=== PATIENT | female | born 1990 | race Two or more races ===

== ENCOUNTER 2024-08-09 14:26 | Inpatient (IN) | payer OTHER ==
[~2024-08-09] VITALS: Ht 167.6 cm; Wt 108.9 kg
--- NOTE | 2024-08-09 14:32 | NUR ---
PTE ALERTA Y ORIENTADA X3 REFIERE VARIOS EPISODISO DE VOMITOS Y DIARREAH. SE MIDEN S/V Y SE UBICA.
[2024-08-09] MEDS ORDERED: RINGERS SOLUTION,LACTATED 1,000 ML IV STA (16:21)
[2024-08-09] MEDS ORDERED: FAMOtidine 10 MG/ML (4ML VIAL) IV PUSH STA (16:22)
[2024-08-09] MEDS ORDERED: PROMETHAZINE HCL 50 MG/ML AMPUL IM STA (16:23)
[2024-08-09] MEDS ORDERED: HYOSCYAMINE SULFATE 0.125 MG TAB.SUBL ONE (16:30)
[2024-08-09] MEDS ORDERED: HYOSCYAMINE SULFATE 0.125 MG TAB.SUBL SL ONE (16:30)
[2024-08-09] MEDS ORDERED: FAMOTIDINE/PF 20 MG/2 ML VIAL ONE ×2 (16:31→23:41)
[2024-08-09] MEDS ORDERED: PROMETHAZINE HCL 50 MG/ML AMPUL IM ONE (16:31)
--- NOTE | 2024-08-09 16:56 | NUR ---
SE ORIENTA PTE SOBRE TX MEDICO EL CUAL REFIERE ENTENDER.SE LE EXTRAEN MUESTRAS BAJO MEDIDAS ASEPTICAS,SE CANALIZA Y SE ADMINISTRA MEDICAMENTO CHAVA ORDEN MEDICA.
[2024-08-09 17:14] LABS: HEMATOCRIT 34.9 % (36.0-45.00); HEMOGLOBIN 10.8 g/dL (12.0-15.00); MEAN CELL VOLUME 75.2 fL (80.00-100.00); MEAN CORPUSCULAR HEMOGLOBIN 23.2 pg (27.00-32.0); MEAN CORPUSCULAR HGB CONC 30.9 g/dl (32.0-36.0); PLATELET COUNT 423 K/uL (150-450); RED BLOOD COUNT 4.65 M/uL (4.00-6.00)
[2024-08-09 17:35] LABS: ALBUMIN 3.9 gm/dL (3.4-5.0); BILIRUBIN TOTAL 1.24 mg/dL (0.3-1.2); CALCIUM 9.1 mg/dL (8.5-10.1); CREATININE SERUM 1.31 mg/dL (0.55-1.02); GFR 45.94; GLOBULINA 4.8 G/DL (2.4-3.5); POTASSIUM 3.86 mEq/L (3.5-5.1); TOTAL PROTEIN 8.7 gm/dL (6.4-8.2)
[2024-08-09 18:13] LABS: PH,URINE 5.5 (5.0-8.0); URINE APPEARANCE Cloudy; URINE BILIRRUBIN Small (NEGATIVE); URINE BLOOD Moderate; URINE COLOR Orange; URINE GLUCOSE Negative (NEGATIVE); URINE KETONE Trace (NEGATIVE); URINE LEUKOCYTE Small; URINE NITRATE Positive
[2024-08-09 18:17] LABS: URINE BACTERIA 1370.8 uL (0.0-1933); URINE RBC 3.9 uL (0.0-20.8); URINE WBC 95.9 uL (0.0-23.2)
[2024-08-09 18:36] LABS: URINE CAST > 21.83 uL (0.0-1.40); URINE EPITHELIAL CELLS > 201.7 uL (0.0-38.8); URINE PROTEIN 300 (NEGATIVE)
[2024-08-09] MEDS ORDERED: MORPHINE SULFATE 4 MG/ML VIAL IV STA (19:45)
[2024-08-09] MEDS ORDERED: KETOROLAC TROMETHAMINE 30 MG VIAL IV STA (19:46)
[2024-08-09] MEDS ORDERED: KETOROLAC TROMETHAMINE 30 MG VIAL ONE (20:14)
--- NOTE | 2024-08-09 20:32 | NUR ---
SE ADMINISTRA TORADOL CHAVA ORDEN MEDICA BAJO MEDIDAS ASEPTICAS SE ORIENTA A PTE QUIEN REFIERE ENTENDER Y ACEPTAR. PTE REFIERE QUE NO DESEA QUE LE ADMINISTREN MORFINA.
[2024-08-09] MEDS ORDERED: ONDANSETRON HCL 2 MG/ML VIAL IV STA (21:01)
[2024-08-09] MEDS ORDERED: ONDANSETRON HCL 2 MG/ML VIAL ONE (21:23)
[2024-08-09] MEDS ORDERED: MEROPENEM 20 MG/ML REDILUIDO IV STA (22:44)
[2024-08-09] MEDS ORDERED: 0.9 % SODIUM CHLORIDE 1,000 ML IV ONE (23:30)
[2024-08-09] MEDS ORDERED: MEROPENEM 1,000 MG in 0.9 % SODIUM CHLORIDE 100 ML IV ONE (23:30)
[2024-08-09] MEDS ORDERED: MORPHINE SULFATE 4 MG/ML CARTRIDGE IV ONE (23:30)
[2024-08-09] MEDS ORDERED: SODIUM CHLORIDE 0.9% IV PUSH ONE (23:45)
[2024-08-09] MEDS ORDERED: TRAMADOL HCL 50 MG TABLET PO ONE (23:45)
[2024-08-09] MEDS ORDERED: FAMOTIDINE IV PUSH ONE (23:45)
[2024-08-10] MEDS ORDERED: ACETAMINOPHEN 500 MG GEL..CAP PO PRN (00:30)
[2024-08-10] MEDS ORDERED: ONDANSETRON HCL 4 MG in 0.9 % SODIUM CHLORIDE 50 ML IV PRN (00:30)
[2024-08-10] MEDS ORDERED: 0.9 % SODIUM CHLORIDE 1,000 ML IV SCH (00:30)
[2024-08-10] MEDS ORDERED: 0.9 % SODIUM CHLORIDE 1,000 ML IV ONE (00:45)
[2024-08-10] MEDS ORDERED: MORPHINE SULFATE 4 MG/ML CARTRIDGE IV PRN (00:45)
[2024-08-10] MEDS ORDERED: MEROPENEM 500 MG/VIAL VIAL IV SCH ×2 (01:00→08:00)
[2024-08-10 01:53] LABS: ABG PH 7.465 (7.35-7.45); ABG PO2 89.3 mmHg (80-100); ABG pCO2 25.4 mmHg (35-45); BICARBONATE 17.8 mmol/l (23-25); SaO2 97.3 %; Tco2 18.6 mmol/l
[2024-08-10 01:54] LABS: allen test SATISFACTORY; o2 21 %; puncture site RADIAL RIGHT
[2024-08-10 05:30] VITALS: BP 106/58; O2SAT 100
[2024-08-10 07:30] LABS: INR 1.21; PARTIAL THROMBOPLASTIN TIME 35.6 SECONDS (22.0-34.0)
[2024-08-10] MEDS ORDERED: PANTOPRAZOLE SODIUM 40 MG/VIAL VIAL IV SCH (09:00)
[2024-08-10] MEDS ORDERED: ENOXAPARIN SODIUM 40 MG/0.4 ML SYRINGE SUBCUTANEO SCH (09:00)
[2024-08-10] MEDS ORDERED: MAGNESIUM SULFATE IN WATER 50 ML IV ONE (09:30)
[2024-08-10 16:00] VITALS: BP 123/73; O2SAT 100
[2024-08-11 00:21] VITALS: BP 113/69; O2SAT 95
[2024-08-11 06:47] LABS: HEMATOCRIT 26.8 % (36.0-45.00); MEAN CELL VOLUME 75.3 fL (80.00-100.00); MEAN CORPUSCULAR HGB CONC 31.1 g/dl (32.0-36.0); PLATELET COUNT 278 K/uL (150-450); RED BLOOD COUNT 3.55 M/uL (4.00-6.00); RED CELL DISTRIBUTION WIDTH 16.1 % (11.5-14.5)
[2024-08-11 06:51] LABS: HEMOGLOBIN 8.3 g/dL (12.0-15.00); MEAN CORPUSCULAR HEMOGLOBIN 23.3 pg (27.00-32.0)
[2024-08-11 07:13] LABS: ALBUMIN 2.2 gm/dL (3.4-5.0); CALCIUM 7.2 mg/dL (8.5-10.1); CREATININE SERUM 0.71 mg/dL (0.55-1.02); GFR 93.14; GLOBULINA 3.4 G/DL (2.4-3.5); MAGNESIUM 1.7 mg/dL (1.8-2.4); POTASSIUM 3.61 mEq/L (3.5-5.1); TOTAL PROTEIN 5.6 gm/dL (6.4-8.2)
[2024-08-11 08:49] VITALS: BP 106/66; O2SAT 97
[2024-08-11] MEDS ORDERED: KETOROLAC TROMETHAMINE 30 MG VIAL IM NR (09:35)
[2024-08-11] MEDS ORDERED: LINEZOLID IN DEXTROSE 5% 300 ML IV SCH ×2 (12:00→21:00)
[2024-08-11 15:42] LABS: CALCIUM 7.1 mg/dL (8.5-10.1); CREATININE SERUM 0.62 mg/dL (0.55-1.02); GFR 108.91; POTASSIUM 3.21 mEq/L (3.5-5.1)
[2024-08-11] MEDS ORDERED: DIPHENHYDRAMINE HCL 50 MG/ML VIAL 1ML IV ONE (15:45)
[2024-08-11] MEDS ORDERED: METHYLPREDNISOLONE SOD SUCC 40 MG VIAL IV ONE (15:45)
[2024-08-11] MEDS ORDERED: POTASSIUM CHLORIDE 20MEQ/100ML H2O PB IV NR (17:30)
[2024-08-11 17:55] VITALS: BP 123/79; O2SAT 97
[2024-08-11] MEDS ORDERED: GABAPENTIN 300 MG CAPSULE PO SCH (17:56)
[2024-08-11] MEDS ORDERED: KETOROLAC TROMETHAMINE 15 MG VIAL IV STA (17:57)
[2024-08-11] MEDS ORDERED: MORPHINE SULFATE 4 MG/ML CARTRIDGE IV PRN (17:58)
[2024-08-11] MEDS ORDERED: MAG HYDROX/ALUMINUM HYD/SIMETH 30 ML BLIST.PACK PO SCH (18:03)
[2024-08-11 18:42] LABS: ERYTHROCYTE SEDIMENTATION RATE > 130 mm/hr
[2024-08-11 18:47] LABS: HEMATOCRIT 23.9 % (36.0-45.00); MEAN CELL VOLUME 73.8 fL (80.00-100.00); MEAN CORPUSCULAR HEMOGLOBIN 23.4 pg (27.00-32.0); MEAN CORPUSCULAR HGB CONC 31.7 g/dl (32.0-36.0); PLATELET COUNT 283 K/uL (150-450); RED BLOOD COUNT 3.24 M/uL (4.00-6.00); RED CELL DISTRIBUTION WIDTH 16.4 % (11.5-14.5)
[2024-08-11 18:49] LABS: HEMOGLOBIN 7.6 g/dL (12.0-15.00)
[2024-08-11 19:22] LABS: ALBUMIN 2.3 gm/dL (3.4-5.0); BILIRUBIN TOTAL 0.9 mg/dL (0.3-1.2); CALCIUM 7.2 mg/dL (8.5-10.1); CREATININE SERUM 0.67 mg/dL (0.55-1.02); GFR 99.59; GLOBULINA 3.6 G/DL (2.4-3.5); POTASSIUM 3.46 mEq/L (3.5-5.1); TOTAL PROTEIN 5.9 gm/dL (6.4-8.2)
[2024-08-11 19:26] LABS: C-REACTIVE PROTEIN 24.7 MG/DL (0.00-0.29)
[2024-08-11] MEDS ORDERED: KETOROLAC TROMETHAMINE 30 MG VIAL ONE (19:31)
[2024-08-11] MEDS ORDERED: ACETAMINOPHEN 500 MG GEL..CAP PO SCH (20:00)
[2024-08-11 23:14] VITALS: BP 106/67; O2SAT 100
[2024-08-12 08:18] VITALS: BP 130/86; O2SAT 98
[2024-08-12 08:34] LABS: HEMATOCRIT 26.4 % (36.0-45.00); MEAN CELL VOLUME 74.6 fL (80.00-100.00); MEAN CORPUSCULAR HEMOGLOBIN 23.2 pg (27.00-32.0); PLATELET COUNT 337 K/uL (150-450); RED BLOOD COUNT 3.53 M/uL (4.00-6.00)
[2024-08-12 08:41] LABS: HEMOGLOBIN 8.2 g/dL (12.0-15.00)
[2024-08-12] MEDS ORDERED: ENOXAPARIN SODIUM 40 MG/0.4 ML SYRINGE SUBCUTANEO SCH (09:00)
[2024-08-12 09:45] LABS: FERRITIN 453.7 NG/ML (8-252)
== END 2024-08-12 13:13 | disposition left against medical advice (07) | DRG 872 ==
LOC: ER 14:29 → ICU-2 08-10 00:30 → SURH 08-10 00:30
PROVIDERS: General Practice; Internal Medicine; Student in an Organized Health Care Education/Training Program; ADMIT Internal Medicine; ATTEND Internal Medicine
PROC: BW21ZZZ Computerized Tomography (CT Scan) of Abdomen and Pelvis (ICD-10-PCS; 2024-08-09)
PROC: BQ2RZZZ Computerized Tomography (CT Scan) of Right Lower Extremity (ICD-10-PCS; 2024-08-09)
PROC: B44FZZZ Ultrasonography of Right Lower Extremity Arteries (ICD-10-PCS; principal; 2024-08-11)
PROC: BQ2RYZZ Computerized Tomography (CT Scan) of Right Lower Extremity using Other Contrast (ICD-10-PCS; 2024-08-11)
PROC: B54BZZZ Ultrasonography of Right Lower Extremity Veins (ICD-10-PCS; 2024-08-11)
DX: A41.9 Sepsis, unspecified organism (principal); N17.9 Acute kidney failure, unspecified; N39.0 Urinary tract infection, site not specified; L03.115 Cellulitis of right lower limb; N18.9 Chronic kidney disease, unspecified; E66.01 Morbid (severe) obesity due to excess calories; D64.9 Anemia, unspecified